=== PATIENT | male | born 1990 | race Caucasian/White ===

== ENCOUNTER 2017-12-11 18:14 | Emergency (ER) | payer BC ==
[2017-12-11] MEDS ORDERED: Metoclopramide HCl 10 MG/2 ML VIAL ONE (19:31)
[2017-12-11] MEDS ORDERED: diphenhydrAMINE 50 MG/ML VIAL ONE (19:31)
[2017-12-11] MEDS ORDERED: Ketorolac Tromethamine 60 MG/2 ML VIAL ONE (19:31)
[2017-12-11] MEDS ORDERED: Metoclopramide HCl 10 MG TAB ONE (19:35)
[2017-12-11] MEDS ORDERED: diphenhydrAMINE 50 MG CAP ONE (19:35)
[2017-12-11] MEDS ORDERED: Potassium Chloride 20 MEQ TAB ONE (19:36)
== END 2017-12-11 20:05 | disposition home or self-care (01) ==
LOC: ERS 18:14
DX: T60.91XA Toxic effect of unspecified pesticide, accidental (unintentional), initial encounter (principal); L24.5 Irritant contact dermatitis due to other chemical products; R51 Headache; Z87.891 Personal history of nicotine dependence; Z79.899 Other long term (current) drug therapy
CPT/HCPCS: 96372; J1200; J1885; J2765